=== PATIENT | female | born 1965 | race African-American/Black ===

== ENCOUNTER → 2018-01-26 | Outpatient (CLI) | payer BC | LOC: BC 13:59 | DX: Z12.31 Encounter for screening mammogram for malignant neoplasm of breast (principal) ==

== ENCOUNTER → 2021-03-02 | Outpatient (CLI) | payer BC | LOC: BC 07:56 | PROVIDERS: ATTEND Family Medicine | DX: Z12.31 Encounter for screening mammogram for malignant neoplasm of breast (principal) ==